=== PATIENT | female | born 1975 | race Caucasian/White ===

== ENCOUNTER 2017-06-01 12:00 | Emergency (ER) | payer OTHER ==
[2017-06-01] MEDS ORDERED: HYDROcodone/APAP 5-325MG 1 EACH TAB PO STA (13:03)
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
[2017-06-01 14:53] VITALS: BP 139/84; PULSE 110; RESP 20; TEMP 97
== END 2017-06-01 14:53 | disposition home or self-care (01) ==
LOC: EC 12:00
DX: M79.661 Pain in right lower leg (principal); Z87.891 Personal history of nicotine dependence; Z98.890 Other specified postprocedural states
CPT/HCPCS: 99283